=== PATIENT | male | born 1980 | race Caucasian/White ===

== ENCOUNTER 2016-10-28 15:31 | Emergency (ER) | payer SELFPAY ==
[~2016-10-28] VITALS: Ht 160 cm; Wt 112.0 kg
[~2016-10-28 15:31] MED LIST: MOTRIN IB200 MG PO; TYLENOL325 M1 PO
[2016-10-28 15:45] VITALS: BP 147/71
== END 2016-10-28 17:26 | disposition left against medical advice (07) ==
LOC: EME 15:31
DX: R03.0 Elevated blood-pressure reading, without diagnosis of hypertension (principal); Z53.21 Procedure and treatment not carried out due to patient leaving prior to being seen by health care provider

== ENCOUNTER 2017-07-14 21:16 | Emergency (ER) | payer OTHER ==
[~2017-07-14] VITALS: Ht 160 cm; Wt 113.2 kg
[2017-07-14 22:01] LABS: HEMATOCRIT 48.3 % (38.0-50.0); HEMOGLOBIN 16.4 G/DL (12.5-16.6); MCH 29.4 PG (29.0-34.0); MCV 86.6 FL (86-99); PLATELET COUNT 186 K/uL (156-360); RBC DIS.WIDTH-CV 12.8 % (11.8-14.6); RBC DIS.WIDTH-SD 39.8 % (39-53); RED BLOOD COUNT 5.58 M/uL (4.00-5.50); WHITE BLOOD COUNT 10.6 K/uL (4.1-10.2)
[2017-07-14 22:11] LABS: CHLORIDE 107 mEq/L (99-109); POTASSIUM 4.2 mEq/L (3.7-5.4); SODIUM 140 mEq/L (136-147)
[2017-07-14 22:13] LABS: GLUCOSE 101 mg/dL (70-99)
[2017-07-14 22:17] LABS: GFR ESTIMATE (CALCULATED) > 59 mL/min/ (58.99-99999)
[2017-07-14 22:18] LABS: UREA NITROGEN (BUN) 10 mg/dL (9-23)
[2017-07-14 22:22] LABS: TROP-I INTERPRETATION NEGATIVE; TROPONIN-I < 0.01 ng/mL (0.0-0.30)
[2017-07-15 01:07] LABS: TROP-I INTERPRETATION NEGATIVE; TROPONIN-I < 0.01 ng/mL (0.0-0.30)
[2017-07-15] MEDS ORDERED: CHILD ASPIRIN81 M1 PO (01:08)
[2017-07-15] MEDS ORDERED: INDOCIN50 MG PO (01:10)
[2017-07-15 01:21] VITALS: BP 142/97
== END 2017-07-15 01:26 | disposition home or self-care (01) ==
LOC: EME 21:16
PROVIDERS: Physician Assistant
DX: R07.89 Other chest pain (principal); R03.0 Elevated blood-pressure reading, without diagnosis of hypertension; G56.03 Carpal tunnel syndrome, bilateral upper limbs; F41.9 Anxiety disorder, unspecified; M16.0 Bilateral primary osteoarthritis of hip; M19.072 Primary osteoarthritis, left ankle and foot; M19.071 Primary osteoarthritis, right ankle and foot; Z72.0 Tobacco use; Z88.2 Allergy status to sulfonamides; Z88.1 Allergy status to other antibiotic agents
CPT/HCPCS: 71020; 80048; 84484; 85027; 93005; 99281; 99284